=== PATIENT | female | born 1950 | race Caucasian/White ===

== ENCOUNTER 2020-01-10 13:57 | Day surgery (SDC) | payer OTHER ==
[~2020-01-10] VITALS: Ht 157.5 cm; Wt 57.5 kg
[~2020-01-10 13:57] MED LIST: AMOCLA875 PO; Aciphex20 MG; Anaspaz0.125 MG PO; CALCIUM + D3 E1 EACH PO; DHEA PO; Dhea Tablet1 EACH PO; ESTRTP VAG; FISH1000 PO; LEXAPRO5 MG; METO10 PO; Norco 5-325 Ta1 EACH PO; RABE20 PO; VALA500; XERESE 5%-1% CRE5 GM TP; Zofran Odt8 MG SL
--- NOTE | 2020-01-10 14:31 | NUR ---
01/10/20 1431 Shelley Moyer PT BOWEL PREP PLENVU
--- NOTE | 2020-01-10 16:35 | NUR ---
01/10/20 1635 Misa Lynne PERSCRIPTION PROVIDED FOR DICYCLOMINE
== END 2020-01-10 16:40 | disposition home or self-care (01) ==
LOC: ORSCSDS 13:57
PROVIDERS: Internal Medicine Gastroenterology
PROC: 0DBN8ZX Excision of Sigmoid Colon, Via Natural or Artificial Opening Endoscopic, Diagnostic (ICD-10-PCS; principal; 2020-01-10 15:15)
DX: K62.89 Other specified diseases of anus and rectum (principal); Z86.010 Personal history of colon polyps; K63.5 Polyp of colon; K57.30 Diverticulosis of large intestine without perforation or abscess without bleeding; F41.9 Anxiety disorder, unspecified; J45.909 Unspecified asthma, uncomplicated; Z79.899 Other long term (current) drug therapy
CPT/HCPCS: 88305; J2704; J7120

== ENCOUNTER → 2020-06-19 | Outpatient (CLI) | payer OTHER | END | disposition home or self-care (01) | LOC: LAB SHORT 13:21 → LAB 13:21 | DX: R21 Rash and other nonspecific skin eruption (principal); B00.1 Herpesviral vesicular dermatitis; R52 Pain, unspecified | CPT/HCPCS: 87529; 87798 ==

== ENCOUNTER → 2022-08-10 | Outpatient (CLI) | payer OTHER ==
[2022-08-10 16:33] LABS: Influenza A, PCR NEGATIVE (NEGATIVE); Influenza B, PCR NEGATIVE (NEGATIVE); Resp Syncytial Virus, PCR NEGATIVE (NEGATIVE); SARS-Cov-2 (COVID-19) PCR, MMC NEGATIVE (NEGATIVE)
== END | disposition home or self-care (01) ==
LOC: LAB 15:16 → LAB SHORT 15:16
PROVIDERS: Family Medicine
DX: J02.9 Acute pharyngitis, unspecified (principal); R05.9 Cough, unspecified; R50.9 Fever, unspecified
CPT/HCPCS: 0241U

== ENCOUNTER 2023-06-07 11:31 | Emergency (ER) | payer OTHER ==
[~2023-06-07] VITALS: Ht 157.5 cm; Wt 56.2 kg
[2023-06-07 11:58] LABS: BASOPHILS ABSOLUTE AUTO 0.05 K/mm3 (0.00-0.23); BASOPHILS PERCENT AUTO 0 % (0-2); EOSINOPHILS ABSOLUTE AUTO 0.01 K/mm3 (0.00-0.68); EOSINOPHILS PERCENT AUTO 0 % (0-6); Hematocrit 45.8 % (33.0-51.0); Hemoglobin 15.2 g/dL (11.5-16.0); IMMATURE GRAN ABSOLUTE AUTO 0.06 K/mm3 (0.00-0.10); IMMATURE GRAN PERCENT AUTO 0 % (0-1); LYMPHOCYTES ABSOLUTE AUTO 0.52 K/mm3 (0.84-5.20); LYMPHOCYTES PERCENT AUTO 3 % (21-46); MONOCYTES ABSOLUTE AUTO 0.43 K/mm3 (0.16-1.47); MONOCYTES PERCENT AUTO 2 % (4-13); Mean Corpuscular HGB 30.6 pg (26.0-34.0); Mean Corpuscular HGB Conc 33.2 g/dL (31.5-36.5); Mean Corpuscular Volume 92 fL (80-100); Mean Platelet Volume 9.2 fL (9.1-12.4); NEUTROPHILS ABSOLUTE AUTO 16.62 K/mm3 (1.96-9.15); NEUTROPHILS PERCENT AUTO 94 % (41-73); Platelet Count 248 K/mm3 (150-400); RDW Coefficient Variation 12.4 % (11.7-14.2); RDW Standard Deviation 42.4 fL (35.1-46.3); Red Blood Cell Count 4.96 M/mm3 (3.80-5.20); White Blood Cell Count 17.69 K/mm3 (4.00-11.30)
[2023-06-07 12:29] LABS: Albumin, Blood 3.9 g/dL (3.4-5.0); Albumin/Globulin Ratio 1.1 (0.8-1.8); Bilirubin, Total 0.6 mg/dL (0.1-1.0); Bun/Creatinine Ratio 24.8 (12.0-20.0); Calcium, Blood 8.6 mg/dL (8.5-10.1); Creatinine, Blood 0.61 mg/dL (0.40-1.00); Globulin, Blood 3.5 g/dL (2.2-4.0); Potassium, Blood 3.7 mmol/L (3.5-5.5); Total Protein, Blood 7.4 g/dL (6.4-8.2)
[2023-06-07] MEDS ORDERED: ANORO ELLIPTA1 EAC1 INH (14:53)
[2023-06-07] MEDS ORDERED: RABEPRAZOLE SOD20 MG PO (14:53)
[2023-06-07] MEDS ORDERED: Ventolin/Prove6.7 GM (14:54)
[2023-06-07 16:43] LABS: Source, Urine Clean Catch
[2023-06-07 16:53] LABS: Appearance, Urine Clear (Clear); Bilirubin, Urine Neg (Neg); Blood, Urine Neg (Neg); Glucose Qualitative, Urine Neg (Neg); Ketones, Urine 2+ (Neg); Leukocyte Esterase, Urine Neg (Neg); Nitrite, Urine Neg (Neg); Protein, Urine Neg (Neg); Urobilinogen, Urine NORM (Normal)
[2023-06-07 18:09] LABS: Color, Urine Pale Yellow (P-Yellow)
[2023-06-07 21:24] VITALS: BP 123/54
[2023-06-07] MEDS ORDERED: AMOCLA875 PO (21:37)
[2023-06-07] MEDS ORDERED: IBUP600 PO (21:37)
[2023-06-07] MEDS ORDERED: Percocet 5-3251 EACH PO (21:37)
== END 2023-06-07 22:44 | disposition home or self-care (01) ==
LOC: ER 11:31
PROVIDERS: Emergency Medicine; Physician Assistant
DX: J18.9 Pneumonia, unspecified organism (principal); R09.1 Pleurisy
CPT/HCPCS: 71046; 71260; 74177; 80053; 81003; 83690; 84484; 85025; 93005; 93010; 96361; 96374; 96375; 96376; 99284-25; A9270; J1885; J2405; J3010; J7030; Q9967

== ENCOUNTER → 2023-10-06 | Outpatient (CLI) | payer OTHER ==
[~2023-10-06] MED LIST changes: +ANORO ELLIPTA1 EAC1 INH; +IBUP600 PO; +Percocet 5-3251 EACH PO; +RABEPRAZOLE SOD20 MG PO; +Ventolin/Prove6.7 GM
== END | disposition home or self-care (01) ==
LOC: LAB 15:51 → LAB SHORT 15:51
DX: R50.9 Fever, unspecified (principal); R06.02 Shortness of breath; R05.9 Cough, unspecified
CPT/HCPCS: 87070; 87077; 87185; 87205

== ENCOUNTER → 2025-04-10 | Outpatient (CLI) | payer OTHER | LOC: LAB 07:30 → LAB SHORT 07:30 → LAB FUT 04-09 16:55 → EDSTATUS 04-09 16:55 | DX: R09.3 Abnormal sputum (principal) | CPT/HCPCS: 87070; 87205 ==

== ENCOUNTER → 2025-06-11 | Outpatient (CLI) | payer OTHER | LOC: LAB 11:15 → LAB SHORT 11:15 | DX: N39.0 Urinary tract infection, site not specified (principal) | CPT/HCPCS: 87086 ==